=== PATIENT | male | born 1970 | race Caucasian/White ===

== ENCOUNTER 2018-10-24 10:36 | Emergency (ER) | payer OTHER ==
[~2018-10-24] VITALS: Ht 182.9 cm; Wt 84.8 kg
[~2018-10-24 10:36] MED LIST: NAPROXEN500 MG PO
== END 2018-10-24 11:18 | disposition home or self-care (01) ==
LOC: ED 10:36
PROC: 0HQ0XZZ Repair Scalp Skin, External Approach (ICD-10-PCS; principal; 2018-10-24)
DX: S01.01XA Laceration without foreign body of scalp, initial encounter (principal); W22.8XXA Striking against or struck by other objects, initial encounter
CPT/HCPCS: 12001; 90471; 90715; 99282-25

== ENCOUNTER 2021-06-11 13:12 | Inpatient (IN) | payer OTHER ==
[~2021-06-11] VITALS: Ht 182.9 cm; Wt 80.4 kg
[2021-06-11] MEDS ORDERED: DICLOFENAC SOD100 G1 TOP (18:02)
--- NOTE | 2021-06-11 20:03 | NUR ---
TEMP 100.0 AXILLARY, PT DECLINES TYLENOL SUPP, DR DICK NOTIFIED VIA PHONE. NEW ORDERS FOR TYLENOL IV 1000MG Q8H PRN FEVER OBTAINED. WILL GIVE MED SOON AVAILABLE
--- NOTE | 2021-06-11 20:27 | NUR ---
on room air, lungs clear, ivf infusing LA, no c/o adverse reaction to IV abx. no c/o abd pain. aware of need to void, pt admitted at 1800 or so. states, I do not need or feel like I need to pee, I urinated in the ED. I can use the urinal and I will call you. still waiting for public relations supervisor to bring IV tylenol. pt aware, tolerating ice chips, no emesis. turns and repositions self in bed
--- NOTE | 2021-06-11 20:55 | NUR ---
TYLENOL IV PER FEVER 100.2 AX AT THIS TIME, ROOM TEMP DECREASED FROM 75 TP 70 AND 1 COVER REMOVED. PROCEDURE EXPLAINED, STATED UNDERSTANDING
--- NOTE | 2021-06-11 21:07 | NUR ---
voided, light aron colored, w sediments strong foul smelling urine, using urinal.
--- NOTE | 2021-06-11 22:56 | NUR ---
in to recheck temp, 98.4, cristopher informed
--- NOTE | 2021-06-11 23:41 | NUR ---
RESTING, NO C/O PAIN OR N/V. IVF INFUSING, CALL LIGHT AT HANDS REACH. NPO FOR AM PROCEDURE
--- NOTE | 2021-06-12 00:50 | NUR ---
RESTING, ON ROOM AIR, RESP EVEN, UNLABORED, TURNS AND REPOSITIONS SELF IN BED, IVF INFUSING
--- NOTE | 2021-06-12 02:21 | NUR ---
AWAKENS EASILY, IVF INFUSING, NO C/O ADVERSE REACTION TO ABX. NPO, TURNS AND REPOSITIONS SELF IN BED, COOP WTIH ASSESSMENT, NO EMESIS
--- NOTE | 2021-06-12 04:11 | NUR ---
PT C/O 03/27 ABD CRAMPING, MEDICATED WITH DILAUDID 1MG IV. IN BED AWAKE, WATCHING TV. NPO. DOES OWN MOUTH CARE, IVF INFUSING
--- NOTE | 2021-06-12 04:58 | NUR ---
PT ON ROOM AIR, IVF INFUSING, NO C/O ADVERSE REACTION TO IV ABX. NPO EXCEPT FOR ICE CHIPS, HAS TOLERATED WELL, NO EMESIS. MEDICATED X1 WITH DILAUDID C/O ABD CRAMPING. EFFECTIVE, NO BM THIS SHIFT, NO EMESIS. HAD A TEMP OF 100.2, RECEIVED TYLENOL IV, EFFECTIVE, AFEBRILE. ALERT, ORIENTED, PLEASANT. USING URINAL, VOIDING QS LIGHT EDDY FOUL SMELLING URINE. USES CALL LIGHT
--- NOTE | 2021-06-12 07:03 | CONS ---
[facility] [address], [place] [address] Signed DATE OF CONSULTATION: 06/11/2021 CHIEF COMPLAINT: Left lower quadrant abdominal pain. 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 He is quite certain he received his immunizations. Over the last four days, he has been having lower abdominal pain with some nausea and fever and diarrhea. He said it is hard to start his urinary stream. Although, he does not feel like his urinary bladder is particularly full. He said the pain was not any worse, it was just coming up towards the level of the umbilicus where he thought he would come to the emergency room for evaluation. Of course, he is tender in the lower abdomen with an elevated white count. The urinalysis is dirty and so urine culture has been sent, but there is no pneumaturia. He underwent a CT scan of the abdomen and pelvis and he has rather significant sigmoid diverticulitis deep in the pelvis behind his urinary bladder. There is extraluminal gas and the urinary bladder is very thickened. The base of the cecum is very thickened and some of the small bowel is very thickened. I have been asked to admit him as a general surgeon on-call. He initially received Rocephin and Flagyl. I requested that cefepime be added. I just finished operating and I have now met Patrick down in his room. PAST MEDICAL HISTORY: None. PAST SURGICAL HISTORY: Traumatic splenectomy at age 31 [address] [facility]. SOCIAL HISTORY: He does not smoke or drink. He is and has one 7-year-old daughter. He has a friend, Lori Corral at [phone]. Dr. Kisha Pang is his primary care provider. 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 FAMILY HISTORY: His mom had Guillain-Monreal syndrome. REVIEW OF SYSTEMS: He had 10 systems reviewed and to his knowledge, no one in the family has had colon cancer polyps. ALLERGIES: Electronically Signed By: SAVANNAH DICK MD 06/12/21 0703 PATIENT NAME: PATRICK HEBERT WITHREYNA CONSULTATION DATE OF : 72 REPORT #: [id number] PHYSICIAN: SAVANNAH DICK MD PCP: KISHA PANG MD REPORT IS CONFIDENTIAL AND NOT TO BE RELEASED WITHOUT AUTHORIZATION [facility] [address], [place] [address] Signed None. MEDICATIONS: None. PHYSICAL EXAMINATION: VITAL SIGNS: His blood pressure is 109/71, his heart rate is 77, his respiratory rate is 15, temperature is 99.0, he is 98% on room air. He is 6 feet tall at 84 kg GENERAL: Patrick is a 51-year-old gentleman who appears healthy and at his stated age. He is alert, awake, and interactive. He is cooperative and actually a pretty good historian. Amazingly, he does not appear systemically ill or toxic. LUNGS: Clear to auscultation bilaterally. HEART: Regular rate and rhythm without murmurs. ABDOMEN: Soft and flat but he definitely is tender from the umbilicus downward. LABORATORY DATA: His white blood cell count 14.3, hemoglobin 14, neutrophils 76. Electrolytes are unremarkable. UA is dirty, so the urine culture was sent. Liver function tests are unremarkable. The albumin is 3.8. The lipase is 14. RADIOGRAPHIC STUDIES: The CT scan is reviewed along with the report. One can easily see the extensive diverticular disease in the sigmoid colon all the way into the bottom of the pelvis behind his bladder. The bladder is very thickened along with the cecum and even some of the small bowel. There is some extraluminal gas as well in the surrounding fat. ASSESSMENT AND PLAN: Patrick is a 51-year-old gentleman with rather significant diverticulitis in the setting of a prior splenectomy. He has been admitted and was started on his IV antibiotics. I have met with Patrick here in the room and I have reviewed all this with him in detail. He is very aware that we will do our best to get him through this without surgery initially hoping that he will only have one surgery rather than two. There is no question if he would require surgery in the acute setting, he would end up with a temporary colostomy. Whether or not we could actually resect that diseased colon at this time it is hard to know. I did explain that to him, he is aware to that if he has trouble urinating our nurses can certainly place a Khoury catheter for him. Otherwise, we are going to treat him conservatively and we will see how he progresses. He has expressed understanding and agrees with the above plan. Savannah Dick MD Electronically Signed By: SAVANNAH DICK MD 06/12/21 0703 PAT[facility] DATE OF : 72 REPORT #: [id number] PHYSICIAN: SAVANNAH DICK MD PCP: KISHA PANG MD REPORT IS CONFIDENTIAL AND NOT TO BE RELEASED WITHOUT AUTHORIZATION [facility] [address] [facility] Services[address] [place] [address] Signed CARIE/MODL /[id number] cc: MD Savannah Crouch MD Copies: SAVANNAH DICK MD ~ Electronically Signed By: SAVANNAH DICK MD 06/12/21 0703 PATIENT NAME: PATRICK HEBERT CONSULTATION DATE OF : 72 REPORT #: [id number] PHYSICIAN: SAVANNAH DICK MD PCP: KISHA PANG MD REPORT IS CONFIDENTIAL AND NOT TO BE RELEASED WITHOUT AUTHORIZATION
--- NOTE | 2021-06-12 08:00 | NUR ---
REPORT RECEIVED FROM NIGHT RN AND PT. CARE RESUMED. PT. IS ALERT AND ORIENTED. HE REPORTS SHARP INTERMITTENT ABDOMINAL PAIN, ESPECIALLY IN THE LEFT SIDE. ADMIN DILAUDID IVP. LUNGS CLEAR THROUGHOUT AND PT. ON RA. IV SITES WNL AND FLUSH WELL. BOWEL TONES HYPERACTIVE THROUGHOUT. URINE IS EDDY COLOR BUT CLEAR. DISCUSSED SAFETY, MEDS, AND POC. PT. LEFT RESTING WITH CALL LIGHT IN REACH.
[2021-06-12] MEDS ORDERED: MULTI VITAMIN1 EACH PO (09:58)
[2021-06-12] MEDS ORDERED: NAPROXEN500 MG PO (09:58)
[2021-06-12] MEDS ORDERED: KETOCONAZOLE120 ML TOP (09:58)
--- NOTE | 2021-06-12 09:59 | NUR ---
MED REC COMPLETE
--- NOTE | 2021-06-12 10:00 | NUR ---
PATIENT IN BED WATCHING TV. VITALS AND I&O'S CHARTED. CALL LIGHT IN REACH. NO FURTHER NEEDS AT THIS TIME.
--- NOTE | 2021-06-12 10:54 | NUR ---
PT. REPORTS SHARP ABDOMINAL PAIN IS RETURNING. IVP DILAUDID ADMIN. HE WAS ALSO GIVEN WARM WASHCLOTH FOR HIS FACE AND WIPES FOR HANDS. DENIES FURTHER NEEDS AND LEFT RESTING WITH CALL LIGHT IN REACH.
--- NOTE | 2021-06-12 15:06 | NUR ---
PT C/O 5/10 ABDOMINAL PAIN THAT IS ACHING. DILAUDID ADMIN. ABDOMEN IS SOFT AND TENDER TO PALP. HE REPORTS THAT HE IS PASSING GAS BUT HAS NOT HAD A BM SINCE ADMISSION. VITALS STABLE AND PT. IS VOIDING QS. URINE CONTINUES TO BE CONCENTRATED. WILL CONTINUE TO MONITOR.
--- NOTE | 2021-06-12 18:28 | NUR ---
CRUISE DIRECTOR REPORTS PT. HAS NOT VOIDED IN FOUR HOURS. THIS NURSE SPOKE PT. AND HE STATES HE WILL TRY TO VOID. PT. ADVISED THAT WE WILL BLADDER SCAN HIM IF HE IS UNABLE TO VOID WITHIN 30 MIN. PT. UNDERSTANDS. HE ALSO C/O RETURNING ABDOMINAL PAIN AND REQUESTS DILAUDID WHEN AVAILABLE. WILL ADMIN WHEN DUE.
--- NOTE | 2021-06-12 19:14 | NUR ---
IN BED WATCHING TV, ROOM AIR, IVF INFUSING, NO C/O PAIN OR N/V. CALL LIGHT AND FLUIDS AT BEDSIDE, AWARE OF FLUID RESTRICTION
--- NOTE | 2021-06-12 19:48 | NUR ---
TEMP WAS 100.5 EARLIER AT END OG AM SHIFT. TEMP 100.7 ORALLY AT THIS TIME. TYLENOL IV 1000MG STARTED. NO C/O PAIN. ON ROOM AIR. IVF INFUSIG LA. TOLERATING FLUID RESTRICTION. IS AT BEDSIDE, RT IN ROOM WORKING WITH PT
--- NOTE | 2021-06-12 21:09 | NUR ---
awake, on room air, lungs clear bilat, no cough, no sob. IS at bedside. ivf infusing, temp 99.9 at this time. IS use encourged, staed understanding. tolerating fluid restriction. c/o abd pain, medicated with Dilaudid 1mg IV 2 IV sites, sl lac patent. voided right at change of shift, aware of possible bladder scanning and folety plecement if urine below parameters, stated understanding.
--- NOTE | 2021-06-12 23:59 | NUR ---
pt awake, c/o abd pain, dilaudid taken to room, then declined iv pain med. will be wasted, charge nurse notified. tolerating liquid restriction, repositions self in bed, voided light aron colored urine, normal odor
--- NOTE | 2021-06-13 03:06 | NUR ---
RESTING, ON ROOM AIR, LAYING ON RIGHT SIDE, NO EMESIS, NO FURTHER C/O PAIN, NO BM. USES CALL LIGHT
--- NOTE | 2021-06-13 04:02 | NUR ---
AWAKE, WATCHING TV, VOIDED LARGE [place] DARK YELLOW URINE. NO C/O PAIN
--- NOTE | 2021-06-13 05:40 | NUR ---
hAS SLEPT OFF AND ON, ON ROOM AIR, WAS MEDICATED WITH DILAUDID 1MG IV X1 PER ABD DISCOMFORT. EFFECTIVE. NO EMESIS, NO BM, DENIES PASSING GAS. TOLERTING CLEAR LIQUID. IVF INFUSING, NO C/O ADVERSE REACTION TO IV ABX. TURNS AND REPOSITIONS SELF. PLEASANT AND COOPERATIVE, USES CALL LIGHT
--- NOTE | 2021-06-13 07:33 | NUR ---
C/O 04/27 ABD PAIN, MEDICATED WITH DIALUDID 1MG IV,
--- NOTE | 2021-06-13 08:15 | NUR ---
REPORT RECEIVED FROM NIGHT RN AND PT. CARE RESUMED. PT. IS ALERT AND ORIENTED. HE STATES HE IS FEELING MUCH BETTER TODAY. RECEIVED DILAUDID RECENTLY AND STATES HIS ABDOMINAL PAIN HAS SUBSIDED. ABDOMEN IS MILDLY DISTENDED AND TENDER THROUGHOUT. LUNGS DIM. BILAT. PT. EDUCATED ON DEEP BREATHING AND DEMONSTRATED USE OF I.S. IV SITES WNL AND FLUSH WELL. PT. TOLERATING CLEAR LIQUIDS. DISCUSSED POC, AMBULATING AND MEDS. LEFT RESTING WITH CALL LIGHT IN REACH.
--- NOTE | 2021-06-13 14:26 | NUR ---
PT. C/O LOWER ABDOMINAL PAIN. ADMIN. IVP DILAUDID. PT. HAD A SMALL FORMED BM. HE HAS NOT VOIDED IN FOUR HOURS. PT. GIVEN 30 MINUTES TO TRY AND WILL BLADDER SCAN. IV ABX AND FLUIDS INFUSING. VITALS STABLE. PT. HAS AMBULATED AROUND THE ROOM AND SHOWERED THIS MORNING. LEFT RESTING WITH CALL LIGHT IN REACH.
--- NOTE | 2021-06-13 17:46 | NUR ---
PT. HAD ANOTHER FORMED BM. HE C/O 8/10 PAIN AFTER AMBULATING AROUND THE UNIT 5X. ADMIN. IVP DILAUDID. IV ABX INFUSING. PT. LEFT RESTING WITH CALL LIGHT IN REACH.
--- NOTE | 2021-06-13 20:44 | NUR ---
pt in bed, room air, lungs clear, MILTON sl iv site, Lhand ivf /iv abx infusing w/o problems. abd soft, tender. c/o abd cramping ache, medicated with Dilaudid 1.5mg IV. tolerating clear liquids/fluid restrictions well. turns and repositions self in bed. temp 99.8, 1 bedspread removed, room temp decreaed to 73. no n/v,
--- NOTE | 2021-06-13 21:36 | NUR ---
PT CALLED. ABX COMPLETE. MAINTANCE FLUIDS INFUSING. NO OTHER NEEDS AT THIS TIME.
--- NOTE | 2021-06-14 00:08 | NUR ---
c/o abd pain, medicated with dilaudid 1.5mg iv, turns and repositions self, ivf infusing
--- NOTE | 2021-06-14 02:13 | NUR ---
medicated with dilaudid 7-04/27 abd pain, medicated with dilaudid 1.5mg iv. ivf infusing w/o problems. no c/o adverse reaction to iv abx. tolerating fluid restrition clear liquids, no emesis, no bm this shift. turns and repositions self. IS at bedside, encouraged to ambulate, has not gotten out of bed since this shift. will continue to try and encourage walks.
--- NOTE | 2021-06-14 03:38 | NUR ---
resting, eyes closed, no distress, on room air, ivf infusing. call light at bedside
--- NOTE | 2021-06-14 05:07 | NUR ---
PT ON ROOM AIR, VOIDING QS, HAS TOLERATED CLEAR FLUID DIET/RESTRICTION. NO EMESIS, IVF INFUSING, TOLERATING IV ABX WELL. HAS BEEN MEDICATED WITH DILAUDID 1.5MG SEVERAL TIMES THIS SHIFT PER ABD PAIN, EFFECTIVE, ABD SOFT, TENDER, REY. STATES PASSING GAS, NO BM THIS SHIFT, TURNS AND REPOSITIONS SELF IN BED, ENCOURAGED TO GET OUT OF BED AND AMBULATE THIS SHIFT. HAS NOT . CONT TO ENCOURAGE MOBILITY OUT IN HALLWAYS. USES CALL LIGHT
--- NOTE | 2021-06-14 05:34 | NUR ---
MEDICATED PER C/O ABD PAIN 03/27. MEDICATED WITH DILAUDID 1.5MG IV, ALERT AND ORIENTED
--- NOTE | 2021-06-14 07:50 | NUR ---
PT AWAKE AND INTERACTIVE AT TIME OF SHIFT EXCHANGE. DENIES NEEDS OR DISCOMFORTS. DR DICK IN TO SEE PT, DISCUSSED PLAN GOING FORWARD, PT DENIES FURTHER QUESTIONS. AGREES WRITTEN EDUCATIONAL MATERIAL ON DIVERTIC HAS BEEN HELPFUL.
--- NOTE | 2021-06-14 09:30 | NUR ---
PATIENT SITTING UP IN BED AT THIS TIME, RN IN ROOM. BREAKFAST AT BEDSIDE. VITALS AND I&O'S CHARTED. PATIENT WANTS TO SHOWER LATER, WILL CHECK BACK IN. CALL LIGHT IN REACH. NO FURTHER NEEDS AT THIS TIME.
--- NOTE | 2021-06-14 10:31 | NUR ---
PT CONTINUES UP IN THE BED ENCOURAGED HIM TO SIT IN THE CHAIR AT TIMES THIS SHIFT AND AMBULATE SEVERAL TIMES. UNDERSTANDING VERBALIZED. PT TOLERATING SMALL AMOUNTS OF FULL LIQUIDS DENIES HUNGER STATES HE'S JUST TAKING IT EASY. NO NAUSEA REPORTED STATES THE PAIN IS ALWAYS PRESENT TO SOME DEGREE DID NOT INCREASE WITH PO INTAKE.
--- NOTE | 2021-06-14 13:07 | NUR ---
PT SITTING UPRIGHT IN BED USING THE PHONE. AGREES PAIN MEDS GIVEN EARLIER WERE EFFECTIVE. FULL LIQUID ITEMS AT BEDSIDE PT IS NIBBLING AT THEM TOLERATING WELL
--- NOTE | 2021-06-14 14:01 | NUR ---
PATIENT SITTING UP IN BED WORKING ON LUNCH. VITALS AND I&O'S CHARTED. CALL LIGHT IN REACH. NO FURTHER NEEDS AT THIS TIME.
--- NOTE | 2021-06-14 15:33 | NUR ---
PT CONTINUES UP IN BED, ABX INFUSING. NO C/O NAUSEA, PAIN WELL CONTROLLED THIS SHIFT. CONTINUES TO INGEST FULL LIQUIDS IN SMALL AMOUNTS.
--- NOTE | 2021-06-14 18:05 | NUR ---
PATIENT SITTING UP IN BED WATCHING TV, RN IN ROOM. VITALS AND I&O'S CHARTED. FRESH ICE CHIPS GIVEN. CALL LIGHT IN REACH. NO FURTHER NEEDS AT THIS TIME.
--- NOTE | 2021-06-14 18:22 | NUR ---
PT RESTING IN BED WATCHING TV CONTINUES TO REQUIRE PAIN MEDS APPROX EVERY 3 HOURS. DENIES FURTHER NEED AT THIS TIME.
--- NOTE | 2021-06-14 19:10 | NUR ---
BEDSIDE REPORT RECEIVED FROM OFFGOING RNMARGARET. PT RESTING IN BED. DENIES NEEDS. CALL LIGHTIN LUCILA.
--- NOTE | 2021-06-14 20:30 | NUR ---
PT UTLIZES CALL LIGHT, REQUESTS PRN PAIN MEDCIATION. PT SPECIFICALLY REQUESTING 1.5 MG OF DILUADID FOR PAIN. ADMINISTERED. PT ASSESSMENT COMPLETE. BT'S ACTIVE. ABD TENDER TO PALPATION, SLIGHT DISTENSION NOTED. IV FLUSHED X 2, PATENT, WNL. URINAL EMPTIED, UO QS, CLEAR YELLOW URINE PRESENT. VS OBTAINED, WNL. PT DENIES FURTHER NEEDS AT THIS TIME. CALL LIGHT IN REACH.
--- NOTE | 2021-06-14 22:20 | NUR ---
PT UTLIZES CALL [place], REQUESTS PRN PAIN MEDCIATIN FOR 03/27 PAIN TO ABDRo OWENS. PT DENIES FURTHER NEEDS AT THIS TIME. CALL REYMUNDO HERNANDEZDionne.
--- NOTE | 2021-06-15 03:15 | NUR ---
PT RESTING IN BED WITH EYES CLOSED. RESPIRATIONS EVEN AND UNLABORED. PT APPEARS TO BE SLEEPING. CALL LIGHT IN REACH.
--- NOTE | 2021-06-15 05:04 | NUR ---
PT ASSESSMENT COMPLETE. PT REPORTS PAIN 8/10 TO ABD. PRN DILAUDID ADMINISTERED. PT DENIES SOB OR NAUSEA AT THIS TIME. PT STATES THAT IV TO MILTON HAS BEEN LEAKING, FLUSHED AND NOTED TO BE LEAKING UPON ASSESSMENT. DC'D WNL. LFA IV FLUSHED, PATENT. BT'S ACTIVE. ABD TENDER TO PALPATION. MILD DISTENSION NOTED. ICE CHIPS AND CRANBERRY JUICE PROVIDED. VS OBTAINED, WNL. PT DENIES FURTHER NEEDS AT THIS TIME. CALL LIGHT IN REACH.
--- NOTE | 2021-06-15 07:32 | NUR ---
PT RESTING EYES CLOSED AT TIME OF SHIFT EXCHANGE. LEFT UNDISTURBED. AWAKE NOW RATES PAIN 7-8/10, BUT STATES HE FEELS BETTER AND BELIEVES HE IS GETTING BETTER.
--- NOTE | 2021-06-15 09:50 | NUR ---
PATIENT IND IN ROOM. PATIENT IN BED AT THIS TIME. SHOWER SUPPLIES IN BATHROOM FOR WHEN PATIENT IS READY FOR SHOWER. VITALS AND I&O'S CHARTED. PATIENT WANTS PAIN MEDS, RN NOTIFIED. CALL LIGHT IN REACH. NO FURTHER NEEDS AT THIS TIME.
--- NOTE | 2021-06-15 10:37 | NUR ---
PT CONCERNED HE IS ONLY GETTING 1 MG DILAUDID OPPOSED TO 1.5. HE WAS GIVEN 1 MG ALL SHIFT YESTERDAY AND REPORTED GOOD PAIN RELIEF, REPORTS TODAY HE IS "SUPPOSED TO GET 1.5MG" DISCUSSED SLIDING SCALE DOSE WITH HIM AND REASON FOR IT, WELL SIDE EFFECTS OF NARCOTIC PAIN MED. HE VERBALIZES UNDERSTANDING, AND REQUESTS 1.5MG DOSES NON THE LESS. CONSISTANTLY REPORTS 8/10 ABDOMINAL PAIN SAYS THE MED HELPS BUT IT IS ALWAYS THERE IN THE BACKGROUND. PT TOLERATED YOGURT AND JUICE FOR MORNING MEAL NO C/O NAUSEA OR INCREASED PAIN. AMBULATION ENCOURAGED.
--- NOTE | 2021-06-15 11:19 | NUR ---
PT UP TO THE SHOWER DENIES NEED OF ASSIST, APPEARS STEADY ON HIS FEET. PERSONAL CARE ITEMS PROVIDED ALICIA GARCÍA
--- NOTE | 2021-06-15 12:37 | NUR ---
PT CONTINUES UP IN BED, HAS NOT AMBULATED THE [place] YET DESPITE ENCOURAGEMENT. HE IS EATING NOON MEAL NOW, USING TELEPHONE, WATCHING TV. CONTINUES TO REQUEST 1.5 OF DILAUDID AT EACH AVAILABLE TIME.
--- NOTE | 2021-06-15 13:41 | NUR ---
PATIENT IN BED WATCHING TV. VITALS AND I&O'S CHARTED. FRESH ICE GIVEN. CALL LIGHT IN REACH. NO FURTHER NEEDS AT THIS TIME.
--- NOTE | 2021-06-15 14:21 | NUR ---
PT RESTING EYES CLOSED
--- NOTE | 2021-06-15 18:22 | NUR ---
PT RESTING IN BED
--- NOTE | 2021-06-15 19:05 | NUR ---
BEDSIDE REPORT RECEIVED FROM ROSEMARIE ROBLES. pt RESTING IN BED. URINAL EMPTIED. IVF INFUSING WNL. CALL LIGHT IN REACH. ICE CHIPS PROVIDED.
--- NOTE | 2021-06-15 20:51 | NUR ---
Vitals, I&Os are complete.
--- NOTE | 2021-06-15 22:00 | NUR ---
PRN PAIN MEDICATION ADMINISTERED FOR 04/27 REPORTED LOWER ABDOMINAL PAIN. pt RESTING IN BED. AGREEABLE TO AMBULATE HALLWAY LATER IN EVENING. ASSESSMENT COMPLETE. BOWEL TONES ACTIVE, ABD SOFT, TENDER WITH PALPATION LOWER ABDOMEN. IV SITES FLUSHED WNL, IV ANBIOTIC INFUSING ORDERED. CALL LIGHT IN REACH. URINAL EMPTIED.
--- NOTE | 2021-06-16 00:15 | NUR ---
Patient was in a deep sleep. Vitals and I&Os are complete.
--- NOTE | 2021-06-16 00:20 | NUR ---
IN pt ROOM FOR IV ANTIBIOTIC ADMINISTRATION. pt SLEEPING, AWAKENS TO VOICE. RATES PAIN 7/10 IN ABDOMEN UPON AWAKENING, LOOKING AT PHONE. PRN PAIN MEDICATION ADMINISTERED. IV ANTIBIOTIC INFUSING. ENSURE AND ICE CHIPS PROVIDED. URINAL EMPTIED. CALL LIGHT IN REACH.
--- NOTE | 2021-06-16 04:36 | NUR ---
CALL LIGHT ANSWERED. IV ANTIBIOTIC COMPLETE. ASSESSMENT COMPLETE. pt C/O 03/27 LOWER ABDOMINAL PAIN, DULL ACHE WITH SHARP PAINS. PRN PAIN MEDICATION ADMINISTERED. "IT FEELS LIKE I HAVE GAS ALL THE TIME". BOWEL TONES ACTIVE, ABD SOFT, TENDER IN LOWER ABDOMEN WITH PALPATION. CRANBERRY JUICE AND ENSURE PROVIDED REQUESTED. URINAL EMPTIED. CALL LIGHT IN REACH.
--- NOTE | 2021-06-16 06:47 | NUR ---
CALL LIGHT ANSWERED. PRN PAIN MEDICATION ADMINISTERED FOR 7/10 ABDOMINAL PAIN. IV ANTIBIOTIC INFUSING WNL. URINAL EMPTIED. CALL LIGHT IN REACH.
--- NOTE | 2021-06-16 07:28 | NUR ---
this rn received report from chai nicholas. per report pt just got pain meds and is resting, this rn to allow pt to rest at this time.
--- NOTE | 2021-06-16 07:45 | NUR ---
PT WAS IN BED. PT WAS GETTING UP TO USE THE BATHROOM. WHITEBOARD WAS UPDATED. CALL LIGHT IS WITHIN REACH. NO FUTHER NEEDS AT THIS TIME.
--- NOTE | 2021-06-16 08:35 | NUR ---
THIS RN IN PTS ROOM TO GIVE PT HIS MORNING MEDS. PT REQUESTING PAIN MEDS AT THIS TIME, THIS RN PROVIDED PT WITH 1MG OF DILUADID. PT STATES THAT HE WILL SHOWER THIS AM.
--- NOTE | 2021-06-16 10:12 | NUR ---
THIS HEALTH SYSTEMS ANALYST SET PT UP FOR A SHOWER. PTS IV SITE WAS COVERED. CALL LIGHT IS WITHIN REACH. NO FURTHER NEEDS AT THIS TIME.
--- NOTE | 2021-06-16 11:35 | NUR ---
THIS RN IN PTS ROOM DUE TO PT REQUESTING PAIN MEDS. THIS RN IN TO PROVIDE PT WITH 1MG OF DILUADID. PT ASKING "WHATS THE DOSAGE" THIS RN EXPLAINED TO HIM ABOUT THE DOSING AND TRYING TO WEAN HIM FROM PAIN MEDS. PT EXPLAINED TO THIS NURSE THAT THE PAIN MEDS "BARELY TAKE THE EDGE OFF" THIS RN EDUCATED PT THAT THE PAIN MEDS ARE SUPPOSED TO DO JUST THAT, TAKE THE EDGE OFF, NOT COMPLETELY TAKE AWAY THE PAIN. THIS RN CALLED FOR PO PAIN MEDS DUE TO PT NOTING THAT HE MIGHT BE GOING HOME TOMORROW- THIS RN RECEIVED THE PHONE ORDER OF NORHATTIE Q6 PRN.
--- NOTE | 2021-06-16 15:31 | NUR ---
THIS RN IN PTS ROOM TO REASSES PTS PAIN. PT JUST GOT BACK TO BED AFTER BEING ON THE RESTROOM FOR 30+ MINUTES PT REPORTS THAT HE IS HAVING INCREASED PAIN. THIS RN ATTEMPTED TO EDUCATE PT ABOUT PAIN, ESPECIALLY ABOUT PAIN LEVEL AND DOSING DUE TO THIS RN STARTING PT ON PO PAIN MEDS. PT ATTEMPTING TO INTERRUPT THIS RN DURINGEDUCATION
--- NOTE | 2021-06-16 20:26 | NUR ---
PATIENT VITALS, IS AND OS CHARTED. ROOM TIDIED, FRESH ICE WATER PROVIDED, CALL LIGHT LEFT WITHIN REACH. NO OTHER IMMEDIATE NEEDS AT THIS TIME.
--- NOTE | 2021-06-16 20:30 | NUR ---
IN BED, ROOM AIR, CLEAR LUNGS, ACTIVE BT'S TENER, IVF/ABX INFUSING LFA. REDNESS MILTON PREVIOUS IV SITE . WARM PAD TO AREA. COOP WITH ASSESSMENT
--- NOTE | 2021-06-17 00:01 | NUR ---
C/O ABD PAIN, MEDICATED WITH DILAUDID IV 1MG. IVF INFUSING.
--- NOTE | 2021-06-17 02:43 | NUR ---
RESTING, LAYING R SIDE, ON ROOM AIR, CALL LIGHT AND FLUIDS AT BEDSIDE, IVF/ABX INFUSING W/O PROBLEMS
--- NOTE | 2021-06-17 03:56 | NUR ---
awake, turns and repositions self. ivf /abx infusing w/o problems, voiding large amounts of yellow urine QS, no emesis
--- NOTE | 2021-06-17 05:17 | NUR ---
CALL LIGHT ANSWERED. IV WRAPPED FOR SHOWER. pt UP IN ROOM INDEPENDENTLY. NO ADDITIONAL NEEDS.
--- NOTE | 2021-06-17 05:45 | NUR ---
in to get vitals, cleaned bathroom after shower, no further needs at this time
--- NOTE | 2021-06-17 05:59 | NUR ---
Has slept well this shift. on room air. clear lungs, has been medicated with Dilaudid IV x1 and with [place] 1 tab, per abd pain, effective, passing gas and had bms. has been tolerating soft diet and liquids well, no emesis. IVF/abx infusing w/o problems, tolerated well. slight resdness [place] previous iv site, warm compress to area earlier, area pink red. Turns and repositions self in bed. Showered this amd as he wants to be DC home prior to 0900 as his child has a doctors apt. will notify md. barnes
--- NOTE | 2021-06-17 07:15 | NUR ---
REPORT RECEIVED FROM ROSEMARIE BLACKMAN. PT RESTINGIN BED ON RIGHT SIDE WITH EYES CLOSED, RESPIRATIONS EVEN AND UNLABORED. BED RAILS UP. CALL LIGHT WITHIN REACH. PT ALLOWED TO REST.
[2021-06-17] MEDS ORDERED: AUGMENTIN 875-1 EACH PO (08:13)
[2021-06-17] MEDS ORDERED: HYDROCODON-ACE1 EAC8 PO (08:14)
[2021-06-17] MEDS ORDERED: COLACE100 MG PO (08:14)
[2021-06-17] MEDS ORDERED: FLAGYL500 MG PO (08:14)
--- NOTE | 2021-06-17 08:31 | NUR ---
MORNING ASSESSMENT AND MEDICATION DUE. PT UP IN ROOM USING RESTROOM, STEADY ON FEET. PT REPORTS 7/10 LOWER INGUINAL ACHING/CRAMPING ABDOMINAL PAIN. PT REPORTS PAIN IS TOLERABLE AT THIS LEVEL AND CONTINUES TO STATE HE I READY TO GO HOME. PT DENIES NAUSEA. BREAKFAST ORDERED FOR PT. LEFT HAND IV NO LONGER IN PLACE, DC'D BY PRODUCT GRADER. LEFT FORARM IV INFUSING ABX (SEE MAR). ABDOMEN CONTINUES TO BE TENDER TO TOUCH. PT DENIES ADDITIONAL REQUESTS OR COMPLAINTS. VERBALIZES UNDERSTANDING OF WHEN TO RETURN TO THE HOSPITAL IF PAIN OR S/S SHOULD WORSEN. PT WATCHING TV. NO ADDITIONAL REQUESTS OR COMPLAINTS. ANTICIPATING DICHARGE AFTER ABX HAVE COMPLETED.
--- NOTE | 2021-06-17 10:05 | NUR ---
PT READY FOR DISCHARGE. PT HAS DRESSED SELF, NO ASSISTANCE NEEDED. VITAL SIGNS STABLE. IV DC'D PER PROTOCOL, GAUZE AND COBAN APPLIED. DISCHRAGE INSTRUCTIONS REVIEWED WITH PT. PT VERBALIZES UNDERSTANDING OF INSTRUCTIONS, MEDICATIONS, FOLLOW UP, AND WHEN TO RETURN TO THE HOSPITAL. PT TRANSFERES SELF TO WHEELCHAIR. PT WHEELED FROM MED/SURG WITH ALL BELONGINGS, NO ADDITIONAL REQUESTS OR CONCERNS.
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
== END 2021-06-17 10:05 | disposition home or self-care (01) | DRG 392 ==
LOC: ED 13:12 → MS 17:21
PROVIDERS: ADMIT Colon & Rectal Surgery; ATTEND Colon & Rectal Surgery
DX: K57.20 Diverticulitis of large intestine with perforation and abscess without bleeding (principal); E87.6 Hypokalemia; Z20.822 Contact with and (suspected) exposure to COVID-19; E83.42 Hypomagnesemia; Z90.81 Acquired absence of spleen
CPT/HCPCS: 74177; 80048; 80053; 80500; 81001; 83690; 83735; 84100; 85007; 85025; 87088; 90686; 94760; C9113; C9803; J0131; J0692; J0696; J1170; J1650; J1885; J3475; J3480; J7030; J7060; J7121; Q9967; U0003

== ENCOUNTER 2021-08-26 07:05 | Day surgery (SDC) | payer OTHER ==
[~2021-08-26] VITALS: Ht 182.9 cm; Wt 169.0 kg
[~2021-08-26 07:05] MED LIST changes: +AUGMENTIN 875-1 EACH PO; +COLACE100 MG PO; +DICLOFENAC SOD100 G1 TOP; +FLAGYL500 MG PO; +HYDROCODON-ACE1 EAC8 PO; +KETOCONAZOLE120 ML TOP; +MULTI VITAMIN1 EACH PO
--- NOTE | 2021-08-26 09:03 | NUR ---
08/26/21 0903 Marleni Frederick 0845- PT TO PACU IN LL POSITION. EYES OPEN. DENIEA PAIN AND NAUSEA. BREATHING EASY AND UNLABORED. SPO2 >95% ON 3 L O2 VIA NC. PT ENCOURAGED TO PASS GAS AND EDUCATED ON PLAN OF CARE. 0854- PT REQUESTING JUICE. SIPPING PO. DENIES NAUSEA. BREATHING EASY AND UNLABORED. SPO2 >95%. 0901- PT ASKING QUESTIONS ABOUT PROCEDURE. VSS. TOLERATING PO WELL.
--- NOTE | 2021-08-27 13:29 | OR ---
[facility] [address] [place], [place] [address] Signed DATE OF OPERATION: 08/25/2021 SURGEON: Savannah Dick MD PREOPERATIVE DIAGNOSIS: Recent sigmoid diverticulitis. POSTOPERATIVE DIAGNOSES: 1. Moderate sigmoid diverticulosis. 2. A 6 mm polyp at 25 cm (distal sigmoid colon). 3. Rectosigmoid junction at 18-20 cm. 4. Minimal internal hemorrhoids. PROCEDURE: Colonoscopy with hot biopsy. ESTIMATED BLOOD LOSS: None. INDICATIONS: Patrick is a 51-year-old gentleman, asked to see me for his colonoscopy. He was in the hospital recently with fairly severe sigmoid diverticulitis involving much of his deep pelvis. He done well on his IV antibiotics and was sent home on Augmentin and Flagyl. Overall, he is doing much better. He still feels a little pain very deep down in the pelvis, but otherwise he is doing much better. He is now able to eat. He is having good soft bowel movements. I had met with Patrick here in my office. I gave him a booklet on diverticulitis. He understands the nature of that disease quite well. We also reviewed colonoscopy in detail. He understands there is risk including, but not limited to gas bloating, crampy abdominal pain, bleeding, perforation requiring surgery, and missed diagnosis. We also discussed the need for IV conscious sedation. He had expressed understanding and wished to proceed. DESCRIPTION OF PROCEDURE: Patrick was taken into our endoscopy suite and placed in the left lateral decubitus position. As always, he is a little anxious. He received a total of 11 mg of Versed and 150 mcg of fentanyl. Interestingly, his eyes were open throughout the whole case and he talked intermittently, but yet he had no recall of that as we were leaving the room. A digital rectal exam was performed and he does have moderate induration and swelling to the prostate gland. There was some dominance on the left side. He said his urinary stream was not as strong as it used to be. He should follow that up with his Electronically Signed By: SAVANNAH DICK MD 08/27/21 0759 Electronically Signed By: SAVANNAH DICK MD 08/28/21 1800 PATIENT NAME: PATRICK HEBERT OPERATIVE REPORT DATE OF : 72 REPORT #: [id number] PHYSICIAN: SAVANNAH DICK MD PCP: ARIANNA SPENCER MD REPORT IS CONFIDENTIAL AND NOT TO BE RELEASED WITHOUT AUTHORIZATION [facility] [address] [place], [place] [address] Signed primary care provider. He has good sphincter tone. No external hemorrhoids. The adult colonoscope was introduced and advanced very carefully up to the rectosigmoid junction. Immediately, the colon started opened up nicely and we traveled around to the cecum itself. His colon was fairly short at about 80 cm. His prep was quite good. We could easily see the appendiceal orifice and the ileocecal valve. The scope was then slowly withdrawn. He does have sigmoid diverticula, they were moderate in size, moderate in number, and scattered about. We could see the colon narrow as we came down the sigmoid colon and of course right above the rectum was the area that bothers him the most. Really, no obvious inflammatory changes currently, although it was angulated and a bit firm. We did see of the small polyps at 25 cm and it was removed easily with hot biopsy forceps. The rectum itself was unremarkable. Upon retroflexion of scope, he has just minimal internal hemorrhoid tissue. After this, the gas was suctioned out, the colonoscope was removed. Patrick tolerated the procedure quite well. RECOMMENDATIONS: I will see Patrick back in my office in 7 to 14 days to review his results. Savannah Dick MD [facility]/MODL /[id number] cc: Patient Chart MD Savannah Crouch MD Copies: SAVANNAH DICK MD ~ Electronically Signed By: SAVANNAH DICK MD 08/27/21 0759 Electronically Signed By: SAVANNAH DICK MD 08/28/21 1800 PATIENT NAME: PATRICK HEBERT OPERATIVE REPORT DATE OF : 72 REPORT #: [id number] PHYSICIAN: SAVANNAH DICK MD PCP: ARIANNA SPENCER MD REPORT IS CONFIDENTIAL AND NOT TO BE RELEASED WITHOUT AUTHORIZATION
--- NOTE | 2021-09-01 14:59 | PATH ---
[facility] [address] [place], [place] [address] Signed SPECIMEN(S): A COLON POLYP AT 25 CM SPECIMEN SOURCE: A. COLON POLYP AT 25 CM CLINICAL HISTORY: Colonoscopy. History of diverticulitis. MICROSCOPIC DESCRIPTION: Histologic sections of all submitted blocks are examined by light microscopy. These findings, together with the gross examination, support the pathologic diagnosis. FINAL PATHOLOGIC DIAGNOSIS: Colon, 25 cm, polypectomy: - Tubular adenoma. - Multiple serial sections were examined. - There is no evidence of high-grade dysplasia or malignancy. TWK:emh:C2NR GROSS DESCRIPTION: The specimen, labeled "DH, 1," and designated on the requisition "colon polyp at 25 cm," is received in formalin and consists of one babcock soft tissue fragment that measures 0.3 cm in greatest dimension. The specimen is entirely submitted in cassette (A1). AT (under the direct supervision of a pathologist) The Gross Description was prepared using a voice recognition system. The report was reviewed for accuracy; however, sound-alike word errors, addition and/or deletions may occur. If there is any question about this report, please contact Client Services. PERFORMING LABORATORY: The technical component was performed by [facility], [address] [place] [id number] (Travel Money Advisor: Lorrie Mayen MD; CLIA# [id number]). The professional interpretation was performed by [facility], [facility], [address] [place] [address]. Diagnostician: Reji Hernandez MD Pathologist Electronically Signed 09/01/2021 PATIENT NAME: PATRICK HEBERT PATHOLOGY DATE OF : 72 REPORT #: [id number] PHYSICIAN: [facility] PATHOLOGY PCP: ARIANNA SPENCER MD REPORT IS CONFIDENTIAL AND NOT TO BE RELEASED WITHOUT AUTHORIZATION [address] [address] Signed Copies: ~ PATIENT NAME: PATRICK HEBERT PATHOLOGY DATE OF : 72 REPORT #: [id number] PHYSICIAN: RIZWANA PATHOLOGY PCP: ARIANNA SPENCER MD REPORT IS CONFIDENTIAL AND NOT TO BE RELEASED WITHOUT AUTHORIZATION
== END 2021-08-26 09:20 | disposition home or self-care (01) ==
LOC: DS 07:05 → OPS 07:05 → DS 08:15 → OPS 08:15
PROVIDERS: ATTEND Colon & Rectal Surgery
PROC: 0DBN8ZZ Excision of Sigmoid Colon, Via Natural or Artificial Opening Endoscopic (ICD-10-PCS; principal; 2021-08-26 08:15)
DX: K57.30 Diverticulosis of large intestine without perforation or abscess without bleeding (principal); K64.8 Other hemorrhoids; D12.5 Benign neoplasm of sigmoid colon
CPT/HCPCS: 88305; 99153; G0500; J2250; J3010; J7121